=== PATIENT | male | born 1945 | race Caucasian/White ===

== ENCOUNTER 2016-12-23 10:22 | Day surgery (SDC) | payer MEDICARE, OTHER ==
[~2016-12-23] VITALS: Ht 177.8 cm; Wt 72.0 kg
[~2016-12-23 10:22] MED LIST: ATOR20TA PO; CETI-158 PO; CHOL500015 PO; OMEG-14 PO; RANI150T4 PO; TAMS0.4C2 PO; UBID100C24 PO
[2016-12-23] MEDS ORDERED: LACTATED RINGERS 1,000 ML IV SCH (10:49)
[2016-12-23 11:05] VITALS: BP 125/74
[2016-12-23] MEDS ORDERED: BUPIVACAINE/PF-EPI 0.5% 1:200K ONE (11:22)
[2016-12-23] MEDS ORDERED: BACITRACIN 50,000 UNIT ONE (11:22)
[2016-12-23] MEDS ORDERED: FENTANYL PF 100 MCG/2ML ONE (12:19)
[2016-12-23] MEDS ORDERED: ONDANSETRON 2MG/ML, 2ML IVPush PRN (12:30)
[2016-12-23] MEDS ORDERED: FENTANYL PF 100 MCG/2ML IV PRN (12:30)
[2016-12-23] MEDS ORDERED: OXYcodone 5 MG/5 ML ORAL.SOL UDC PO PRN (12:30)
[2016-12-23] MEDS ORDERED: MIDAZOLAM 1 MG/ML, 2ML IV PRN (12:30)
[2016-12-23] MEDS ORDERED: LABETALOL 5MG/ML, 20ML IV PRN (12:30)
[2016-12-23] MEDS ORDERED: HYDROmorphone 1 MG/ML, 1ML IV PRN (12:30)
[2016-12-23] MEDS ORDERED: hydrALAzine 20 MG/ML, 1ML IV PRN (12:30)
[2016-12-23] MEDS ORDERED: PROMETHAZINE 25 MG/ML, 1ML IV PRN (12:30)
[2016-12-23] MEDS ORDERED: DEXAMETHASONE 4 MG/ML, 1ML ONE (12:39)
[2016-12-23] MEDS ORDERED: PROPOFOL 10 MG/ML, 20ML ONE (12:39)
[2016-12-23] MEDS ORDERED: ROCURONIUM 10 MG/ML ONE (12:39)
[2016-12-23] MEDS ORDERED: CEFAZOLIN 1,000 MG ONE (12:39)
[2016-12-23] MEDS ORDERED: METOCLOPRAMIDE 5 MG/ML, 2ML ONE (12:39)
[2016-12-23] MEDS ORDERED: ONDANSETRON 2MG/ML, 2ML ONE (12:39)
[2016-12-23] MEDS ORDERED: BUPIVACAINE/PF-EPI 0.5% 1:200K INFIL ONE (13:02)
== END 2016-12-23 17:30 ==
LOC: OUT 10:22
PROVIDERS: ATTEND Surgery
DX: K40.20 Bilateral inguinal hernia, without obstruction or gangrene, not specified as recurrent (principal); E78.00 Pure hypercholesterolemia, unspecified; N40.0 Benign prostatic hyperplasia without lower urinary tract symptoms; Z72.89 Other problems related to lifestyle; Z87.891 Personal history of nicotine dependence
CPT/HCPCS: 49650; 93005; C1727; C1781; J0690; J1100; J2405; J2704; J2765; J3010; J7120

== ENCOUNTER → 2020-09-14 | Outpatient (CLI) | payer MEDICARE, OTHER ==
[~2020-09-14] MED LIST changes: +KRIL1CAP5 PO
[2020-09-14 11:10] LABS: BASOPHILS % (AUTO) 1 % (0-1); EOSINOPHILS % (AUTO) 6 % (1-7); LYMPHOCYTES % (AUTO) 24 % (22-44); MEAN CORPUSCULAR HEMOGLOBIN 30.8 pg (27.5-34.5); MEAN CORPUSCULAR HGB CONC 33.6 g/dL (33.2-36.2); MEAN PLATELET VOLUME 9.1 fL (7.4-10.4); MONOCYTES % (AUTO) 13 % (2-9); NEUTROPHILS % (AUTO) 56 % (42-75); PLATELET COUNT 191 x10^3/uL (130-400); RED BLOOD COUNT 5.31 x10^6/uL (4.38-5.82); RED CELL DISTRIBUTION WIDTH 14.1 % (9.4-14.8)
[2020-09-14 11:19] LABS: ANION GAP 4 mmol/L (5-15); CALCIUM 8.9 mg/dL (8.5-10.1); CHLORIDE 107 mmol/L (98-107)
[2020-09-14 11:31] LABS: MD NO
[2020-09-14 11:32] LABS: MICROSCOPIC NOT IND
[2020-09-14 11:33] LABS: INTERNATIONAL NORMALIZED RATIO 1.08 (0.93-1.1); PROTHROMBIN TIME 11.5 Seconds (9.6-11.5)
== END | disposition home or self-care (01) ==
LOC: STAR 09:43
PROVIDERS: ATTEND Student in an Organized Health Care Education/Training Program
DX: Z01.818 Encounter for other preprocedural examination (principal); N20.0 Calculus of kidney; Z20.822 Contact with and (suspected) exposure to COVID-19
CPT/HCPCS: 36415; 80048; 81003; 85025; 85610; 85730; 87086; 93005; U0003

== ENCOUNTER 2020-09-18 06:29 | Day surgery (SDC) | payer MEDICARE, OTHER ==
[~2020-09-18] VITALS: Ht 175.3 cm; Wt 74.8 kg
[2020-09-18 06:54] VITALS: BP 142/76
[2020-09-18] MEDS ORDERED: CHLORHEXIDINE 15 ML UDC PO ONE (07:00)
[2020-09-18] MEDS ORDERED: LACTATED RINGERS 1,000 ML IV SCH (07:00)
[2020-09-18] MEDS ORDERED: FENTANYL PF 100 MCG/2ML ONE (07:56)
[2020-09-18] MEDS ORDERED: MIDAZOLAM 1 MG/ML, 2ML ONE (07:56)
[2020-09-18] MEDS ORDERED: MEPERIDINE/PF 25MG/0.5ML IVPush PRN (09:00)
[2020-09-18] MEDS ORDERED: DIAZEPAM 5 MG/ML, 2ML IV PRN ×2 (09:00)
[2020-09-18] MEDS ORDERED: hydrALAzine 20 MG/ML, 1ML IV PRN (09:00)
[2020-09-18] MEDS ORDERED: PROMETHAZINE 25 MG/ML, 1ML IV PRN (09:00)
[2020-09-18] MEDS ORDERED: LABETALOL 5MG/ML, 20ML IV PRN (09:00)
[2020-09-18] MEDS ORDERED: HYDROmorphone 1 MG/ML, 1ML INJ IV PRN (09:00)
[2020-09-18] MEDS ORDERED: ALBUTEROL SULFATE 2.5 MG/3 ML NPPB PRN (09:00)
[2020-09-18] MEDS ORDERED: METOCLOPRAMIDE 5 MG/ML, 2ML IV PRN (09:00)
[2020-09-18] MEDS ORDERED: FENTANYL PF 100 MCG/2ML IV PRN (09:00)
[2020-09-18] MEDS ORDERED: ONDANSETRON 2MG/ML, 2ML IVPush PRN (09:00)
[2020-09-18] MEDS ORDERED: KETOROLAC 30 MG/1 ML IV PRN (09:00)
[2020-09-18] MEDS ORDERED: OXYcodone 5 MG/5 ML ORAL.SOL UDC PO PRN (09:00)
[2020-09-18] MEDS ORDERED: SUCCINYLCHOLINE 20 MG/ML, 10ML ONE (10:28)
[2020-09-18] MEDS ORDERED: CEFAZOLIN 1,000 MG ONE (10:28)
[2020-09-18] MEDS ORDERED: ROCURONIUM 10MG/ML,5ML ONE (10:28)
[2020-09-18] MEDS ORDERED: PROPOFOL 10 MG/ML, 20ML ONE (10:28)
[2020-09-18] MEDS ORDERED: ONDANSETRON 2MG/ML, 2ML ONE (10:28)
== END 2020-09-18 11:15 | disposition home or self-care (01) ==
LOC: OR 06:29 → OUT 11:15
PROVIDERS: ATTEND Student in an Organized Health Care Education/Training Program
DX: N20.1 Calculus of ureter (principal); N40.1 Benign prostatic hyperplasia with lower urinary tract symptoms; R39.15 Urgency of urination; R39.12 Poor urinary stream; E78.5 Hyperlipidemia, unspecified; Z79.899 Other long term (current) drug therapy; Z87.442 Personal history of urinary calculi; Z87.891 Personal history of nicotine dependence
CPT/HCPCS: 52353; 74018; 82360; 88300; C1769; J0330; J0690; J2250; J2405; J2704; J3010; J7120; 76000